=== PATIENT | female | born 1960 | race Caucasian/White ===

== ENCOUNTER 2019-08-16 09:05 | Observation (INO) ==
[~2019-08-16 09:05] MED LIST: Bupivacaine/Clonidine Syringe 20 ML, Syringe LUER-LOK 1 EACH TP ONE
[2019-08-16] MEDS ORDERED: Albuterol 2.5 MG/3 ML NEBULIZER IH PRN (09:29)
[2019-08-16] MEDS ORDERED: Clindamycin 900 MG/50 ML 900 MG/50 ML IV.SOLN IVPB ONE (09:29)
[2019-08-16] MEDS ORDERED: Ringers Solution, Lactated 1,000 ML IVC SCH ×2 (09:30→15:55)
[2019-08-16] MEDS ORDERED: Propofol 500 MG/50 ML INFUS..BTL ONE (10:23)
[2019-08-16] MEDS ORDERED: Lidocaine -MPF 2% 2 ML VIAL ONE (10:23)
[2019-08-16] MEDS ORDERED: *HR* FentaNYL (PF) 100 MCG/2 ML VIAL ONE (10:23)
[2019-08-16] MEDS ORDERED: *HR* Dextrose 50 % in Water (Syg) 50 ML SYRINGE IVP PRN ×2 (14:57→15:55)
[2019-08-16] MEDS ORDERED: Dextrose Gel 15 GM/37.5 ML TUBE PO PRN ×4 (14:57→15:55)
[2019-08-16] MEDS ORDERED: D5% in Water 1,000 ML IVC PRN ×2 (14:57→15:55)
[2019-08-16] MEDS ORDERED: Piperacillin/Tazobactam 3.375 GM in 0.9 % Sodium Chloride Mini Bag 100 ML IVPB SCH (16:00)
[2019-08-16] MEDS ORDERED: Insulin LISPRO 300 UNITS/3 ML VIAL SQ SCH ×2 (16:30→21:00)
[2019-08-16] MEDS: Insulin LISPRO 300 UNITS/3 ML VIAL SQ SCH ×2 (17:04→21:00)
[2019-08-16] MEDS: Dorzolamide OPTH 10 ML BOTTLE BOTH EYES SCH ×2 (17:17→20:40)
[2019-08-16] MEDS: Piperacillin/Tazobactam 3.375 GM in 0.9 % Sodium Chloride Mini Bag 100 ML IVPB SCH (17:27)
[2019-08-16] MEDS: Latanoprost 2.5 ML BOTTLE BOTH EYES SCH (20:40)
[2019-08-16] MEDS: *HR* Metformin 500 MG TABLET PO SCH (20:44)
[2019-08-17] MEDS: Piperacillin/Tazobactam 3.375 GM in 0.9 % Sodium Chloride Mini Bag 100 ML IVPB SCH ×3 (00:45→17:36)
[2019-08-17 09:38] LABS: Calcium 9.1 mg/dL (8.6-10.3); Potassium 4.9 mEq/L (3.5-5.1)
[2019-08-17] MEDS: *HR* Metformin 500 MG TABLET PO SCH ×2 (09:40→21:24)
[2019-08-17] MEDS: Dorzolamide OPTH 10 ML BOTTLE BOTH EYES SCH ×3 (09:59→21:28)
[2019-08-17] MEDS: Insulin LISPRO 300 UNITS/3 ML VIAL SQ SCH ×4 (10:00→21:26)
[2019-08-17] MEDS ORDERED: Acetaminophen 325 MG TABLET PO PRN (12:08)
[2019-08-17] MEDS: Latanoprost 2.5 ML BOTTLE BOTH EYES SCH (21:27)
[2019-08-18] MEDS: Piperacillin/Tazobactam 3.375 GM in 0.9 % Sodium Chloride Mini Bag 100 ML IVPB SCH ×3 (00:50→14:42)
[2019-08-18] MEDS: Insulin LISPRO 300 UNITS/3 ML VIAL SQ SCH ×2 (07:19→11:51)
[2019-08-18] MEDS: *HR* Metformin 500 MG TABLET PO SCH (07:31)
[2019-08-18] MEDS: Dorzolamide OPTH 10 ML BOTTLE BOTH EYES SCH ×2 (07:35→14:45)
[2019-08-18 16:37] VITALS: BP 131/73
== END 2019-08-18 17:15 | disposition home or self-care (01) ==
LOC: SAMDAY 09:05 → 3NENU 09:05
PROVIDERS: ADMIT Podiatrist Foot Surgery; ATTEND Podiatrist Foot Surgery